=== PATIENT | female | born 1970 | race Two or more races ===

== ENCOUNTER 2020-11-03 15:54 | Emergency (ER) | payer OTHER ==
[~2020-11-03] VITALS: Ht 162.6 cm; Wt 90.7 kg
[2020-11-03] MEDS ORDERED: AMBIEN10 MG PO (16:35)
[2020-11-03] MEDS ORDERED: VISTARIL50 MG (16:35)
[2020-11-03] MEDS ORDERED: NABUMETONE750 MG PO (19:59)
[2020-11-03] MEDS ORDERED: DUI500 PO (19:59)
== END 2020-11-03 20:30 | disposition home or self-care (01) ==
LOC: ER 15:54
DX: L03.115 Cellulitis of right lower limb (principal)